=== PATIENT | female | born 1940 | race Caucasian/White ===

== ENCOUNTER → 2022-10-15 | Day surgery (SDC) | payer MEDICARE, BC ==
[~2022-10-15] MED LIST: Ketamine 200 MG/20 ML MDV ONE; Lactated Ringers 1,000 ML IV SCH; Phenylephrine 1% 10 MG/ML SDV ONE; Propofol 200 MG/20 ML SDV ONE; ePHEDrine 50 MG/ML SDV ONE; fentaNYL 50 MCG/ML SDV ONE
== END ==
LOC: CC.SDS 08:00
PROVIDERS: ATTEND Family Medicine
DX: K57.30 Diverticulosis of large intestine without perforation or abscess without bleeding (principal); Z12.11 Encounter for screening for malignant neoplasm of colon; K52.9 Noninfective gastroenteritis and colitis, unspecified; E78.5 Hyperlipidemia, unspecified; E04.1 Nontoxic single thyroid nodule; N18.30 Chronic kidney disease, stage 3 unspecified; K55.1 Chronic vascular disorders of intestine; Z79.899 Other long term (current) drug therapy
CPT/HCPCS: J2370; J2704; J3010; J3490; J7120